=== PATIENT | female | born 1995 | race Asian ===

== ENCOUNTER 2018-02-04 17:02 | Emergency (ER) | payer BC ==
--- NOTE | 2018-02-04 17:03 | UC ---
Complaint Female HPI - HPI Summary HPI Summary: Pt presents with burning with urination, suprapubic pressure, and pink tint to her urine that started this morning. She has been treating a yeast infection over the last 2-3 days with OTC monistat and her symptoms regarding that are improving. Denies fever, chills, SOB, chest pain, abdominal pain, n/v/d/c, vaginal discharge, or flank pain. No hx of kidney stone. - History Of Current Complaint Stated Complaint: UTI Time Seen by Provider: 02/04/18 17:03 Hx Obtained From: Patient Onset/Duration: Sudden Onset Timing: Constant Severity Initially: Mild Severity Currently: Mild Pain Intensity: 3 Pain Scale Used: 0-10 Numeric - Allergies/Home Medications Allergies/Adverse Reactions: Allergies Allergy/AdvReac Type Severity Reaction Status Date / Time No Known Allergies Allergy Verified 02/04/18 17:18 Home Medications: Home Medications Miconazole Nitrate [Monistat 3 Combination Pa 200-2 mg-% (9Gm)] 1 kit [facility] DAILY 02/04/18 [History Confirmed 02/04/18] PMH/Surg Hx/FS Hx/Imm Hx Previously Healthy: Yes - Surgical History Surgical History: None - Family History Known Family History: Positive: Unknown - Social History Occupation: Employed Full-time Lives: With Family Alcohol Use: None Substance Use Type: None Smoking Status (MU): Never Smoked Tobacco Have You Smoked in the Last Year: No Review of Systems Constitutional: Negative Skin: Negative Respiratory: Negative Cardiovascular: Negative Gastrointestinal: Negative Genitourinary: Dysuria, Urgency Neurovascular: Negative Neurological: Negative Psychological: Negative All Other Systems Reviewed And Are Negative: Yes Physical Exam - Summary Physical Exam Summary: GENERAL: NAD. WDWN. No pain distress. SKIN: No rashes, sores, ulcers, masses, lesions. NECK: Supple. Nontender. No lymphadenopathy. CHEST: CTAB. No r/r/w. No accessory muscle use. Breathing comfortably and in no distress. CV: RRR. Without m/r/g. Pulses intact. Brisk cap refill. ABDOMEN: Soft. NTTP. No distention or guarding. No organomegaly. No CVA tenderness. Bowel sounds present x4. NEURO: Alert. CN II-XII grossly intact. PSYCH: Age appropriate behavior. Triage Information Reviewed: Yes Complaint Female Dx - Course Course Of Treatment: UA with 2+ blood, 1+ protein, and 2+ leuks. Urine preg negative. Will treat with Bactrim for 5 days and send urine for culture. Given that she is currently treating a yeast infection, will rx diflucan as anbx therapy may make her symptoms worse. - Differential Dx/Diagnosis Provider Diagnoses: UTI Discharge - Sign-Out/Discharge Documenting (check all that apply): Discharge - Discharge Plan Condition: Stable Disposition: HOME Prescriptions: Fluconazole 150 MG (NF) [Diflucan 150 mg (NF)] 150 mg PO ONCE #1 tab Sulfamethox/Trimethoprim DS* [Bactrim DS 800/160 TAB*] 1 tab PO BID #10 tab Patient Education Materials: Urinary Tract Infection in Women (DC) Referrals: No Primary Care Phys,NOPCP [Primary Care Provider] - Additional Instructions: If you develop a fever, shortness of breath, chest pain, new or worsening symptoms - please call your PCP or go to the ED. - Billing Disposition and Condition Condition: STABLE Disposition: HOME
[2018-02-04 17:27] VITALS: BP 107/63
== END 2018-02-04 17:45 | disposition home or self-care (01) ==
LOC: UCEAST 17:02
DX: N39.0 Urinary tract infection, site not specified (principal); Z32.02 Encounter for pregnancy test, result negative
CPT/HCPCS: 81003; 84702; 87086; 99202; G0463